=== PATIENT | male | born 1990 | race Caucasian/White ===

== ENCOUNTER 2022-04-30 15:37 | Outpatient (CLI) | payer OTHER, SELFPAY ==
[2022-04-30 16:04] LABS: Sperm Immotility 100 % (50-60)
== END 2022-04-30 15:38 | disposition home or self-care (01) ==
PROVIDERS: PCP Family Medicine; Visit Provider Urology
DX: Z98.52 Vasectomy status (principal)
CPT/HCPCS: 89310